=== PATIENT | male | born 1995 | race Caucasian/White ===

== ENCOUNTER 2017-03-24 17:02 | Emergency (ER) | payer BC ==
[~2017-03-24] VITALS: Ht 180.3 cm; Wt 61.2 kg
[~2017-03-24 17:02] MED LIST: HYDR-4309 PO
[2017-03-24 17:10] VITALS: BP 110/80
[2017-03-24] MEDS ORDERED: TERB250T74 PO (17:11)
--- NOTE | 2017-03-24 18:20 | ER Report ---
History and Physical Time Seen By MD: 17:55 Hx. of Stated Complaint: PT HAS HAD SORE THROAT FOR ABOUT ONE WEEK. STREP CULTURE NEGATIVE LAST WED. ALL SYMPTOMS HAVE RESOLVED EXCEPT THAT RIGHT TONSIL STILL SWOLLEN. HPI/ROS CHIEF COMPLAINT: Sore throat HISTORY OF PRESENT ILLNESS: This is a 22-year-old male who presents to the emergency department for a sore throat. Patient states that about 6 days ago he developed a sore throat, did go to [facility] for evaluation where they did a strep test which was negative. Patient states that since then his throat is been progressively getting worse his voice is changing, feels like shards of glass, he feels like he's been having some increased difficulties swallowing but doesn't feel his airway is compromised at this time. Patient states that the right side of his neck is more uncomfortable than the left. Patient states he's had aches, chills and sure about fevers patient has had episodes of nausea but no vomiting. No diarrhea or dysuria. No chest pain or shortness of breath. REVIEW OF SYSTEMS: Constitutional: As above. Eyes: No discharge. ENT: As above. Cardiovascular: No chest pain, no palpitations. Respiratory: No cough, no shortness of breath. Gastrointestinal: No abdominal pain, no vomiting. Genitourinary: No hematuria. Musculoskeletal: No back pain. Skin: No rashes. Neurological: No headache. Allergies: Coded Allergies: No Known Drug Allergies (Unverified , 03/24/17) Home Meds Active Scripts Benzonatate 100 Mg Cap (TESSALON PERLE 100 MG CAP) 100 Mg Capsule, 100 MG PO TID Y for COUGH, #15 CAP Prov:CAROLINA RUSSO VISITOR SERVICES INFORMATION ASSISTANT-BC 03/24/17 Reported Medications Terbinafine Hcl (TERBINAFINE HCL) 250 Mg Tablet, PO DAILY 03/24/17 Discontinued Scripts Hydrocodone Bit/Acetaminophen (NORCO 5-325 TABLET) 1 Each Tablet, 1 EACH PO 2- 3XD for 7 Days, #14 TAB Prov:LINDSAY BENSON MD 10/03/16 Past Medical/Surgical History The patient has no significant past medical or surgical history. Reviewed Nurses Notes: Yes Constitutional Vital Sign - Last 24 Hours 03/24/17 03/24/17 17:10 17:10 Temp 99.4 99.4 Pulse 77 77 Resp 14 14 B/P (MAP) 110/80 110/80 Pulse Ox 94 94 O2 Delivery Room Air Room Air Physical Exam General Appearance: The patient is alert, has no immediate need for airway protection and no signs of toxicity, appears uncomfortable. Eyes: Pupils equal and round no pallor or injection. ENT, Mouth: Mucous membranes are moist. 3+ tonsillar hypertrophy with exudative discharge. Erythema to the posterior oropharynx. Respiratory: There are no retractions, lungs are clear to auscultation. Cardiovascular: Regular rate and rhythm, no murmurs, clicks or rubs. Gastrointestinal: Abdomen is soft and non tender, no masses, bowel sounds normal. Neurological: Alert and oriented 4. Moving all extremities. Following all commands. No focal neuro deficits. Skin: Warm and dry, no rashes. Musculoskeletal: Neck is painful, significant anterior cervical chain lymphadenopathy more on the right than the left. Extremities are nontender, nonswollen and have full range of motion. DIFFERENTIAL DIAGNOSIS: After history and physical exam differential diagnosis was considered for strep throat, mono, influenza, peritonsillar abscess and viral syndrome. Medical Decision Making Data Points Laboratory Hematology Test 03/24/17 17:12 03/24/17 18:20 Group A Streptococcus Screen Negative (NEGATIVE) Monoscreen Positive (NEGATIVE) Influenza Virus Type A (PCR) Negative (NEGATIVE) Influenza Virus Type B (PCR) Negative (NEGATIVE) Chemistry Test 03/24/17 17:12 2 18:20 Group A Streptococcus Screen Negative (NEGATIVE) Monoscreen Positive (NEGATIVE) Influenza Virus Type A (PCR) Negative (NEGATIVE) Influenza Virus Type B (PCR) Negative (NEGATIVE) EKG/Imaging Imaging Location: [facility] Patient: Dami Pratt : 1995 Visit/Account:[id number] Date of Sevice: 03/24/2017 EXAMINATION: CT neck with IV contrast HISTORY: Sore throat. Evaluate for abscess. TECHNIQUE: Axial CT images of the neck were obtained with IV contrast, with coronal and sagittal 2D reconstructed images. One of the following dose optimization techniques was utilized in the performance of this exam: Automated exposure control; adjustment of the mA and/ or kV according to the patient's size; or use of an iterative reconstruction technique. Specific details can be referenced in the facility's radiology CT exam operational policy. Contrast: 75 mL of IV Isovue-370. COMPARISON: None. FINDINGS: There is moderate symmetric enlargement of the palatine tonsils bilaterally. No discrete tonsillar or peritonsillar abscess. The airway is otherwise widely patent. There are enlarged level II cervical lymph nodes bilaterally. Largest discrete nodes measure 2.6 x 1.9 cm on the right and 1.8 x 1.5 cm on the left. The parotid and submandibular glands are unremarkable. Normal CT appearance of the thyroid. Vasculature of the neck is patent. Visualized osseous structures are intact. The visualized paranasal sinuses and mastoid air cells are unopacified. Normal alignment along the cervical spine. The lung apices are clear. IMPRESSION: 1. Moderate enlargement of the palatine tonsils bilaterally, without evidence of discrete tonsillar or peritonsillar abscess. 2. Enlarged level II cervical lymph nodes bilaterally are likely reactive. 3. No other acute findings in the neck. Findings were discussed with CAROLINA RUSSO at 03/24/2017 7:18 PM. Report Dictated By: Harley Sharpe MD at 03/24/2017 7:12 PM Report E-Signed By: Harley Sharpe MD at 03/24/2017 7:22 PM WSN:[id number] ED Course/Re-evaluation Clinical Indication for ER IV: IV Access ED Course Patient was admitted to room. A history of physical were obtained. Differential diagnoses were considered. An IV was started. Given 8 mg by mouth Decadron. Patient had a negative rapid strep screen, negative influenza screen positive for mononucleosis. Patient did have a contrast CT of the neck looking for an abscess which was negative. There was a lot of lymphadenopathy noted on the CT. I did discuss these results with patient and instructed him to follow up with [facility] in 1 week. I also instructed the patient to remain free of any contact type sports for at least 2 weeks if not longer. Patient was instructed to take ibuprofen and Tylenol as needed for his pain and discomfort. Patient was also instructed to drink plenty of fluids. Patient was encouraged to return to the emergency department for any other concerns or worsening symptoms. Patient and other questions or concerns and was discharged home. Decision to Disposition Date: Mar 24, 2017 Decision to Disposition Time: 19:58 Depart Departure Latest Vital Signs Vital Signs Date Time Temp Pulse Resp B/P (MAP) Pulse Ox O2 Delivery O2 Flow Rate FiO2 03/24/17 17:10 99.4 77 14 110/80 94 Room Air Impression: Primary Impression: Mononucleosis Condition: Improved Disposition: HOME OR SELF-CARE New Scripts Benzonatate 100 Mg Cap (TESSALON PERLE 100 MG CAP) 100 Mg Capsule 100 MG PO TID Y for COUGH, #15 CAP Prov: CAROLINA RUSSO 03/24/17 Patient Instructions: Mononucleosis (ED) Additional Instructions: Drink plenty of fluids. Get plenty of rest. Take ibuprofen or tylenol as needed for pain and discomfort. [facility] with [facility] in one week for reevaluation. No contact sports for at least two weeks. Take the cough medication as indicated. Try one teaspoon of raw honey 5-6 times a day for sore throat. May return to the ED for worsening symptoms or any other concerns. CAROLINA RUSSO VISITOR SERVICES INFORMATION ASSISTANT-BC Mar 24, 2017 18:20
[2017-03-24] MEDS ORDERED: DEXAMETHASONE SOD PHOS 10MG/ML PO ONE (18:25)
[2017-03-24] MEDS ORDERED: IOPAMIDOL 76% 75 ML INFUS BTL 75 ML ONE (18:32)
[2017-03-24] MEDS ORDERED: NS 0.9% 20 ML SDV 20 ML ONE (18:32)
--- NOTE | 2017-03-24 19:27 | RADIOLOGY IMAGING REPORT ---
FACILITY: PATIENT NAME: Dami Pratt : 1995 MR: [id number] V: [id number] EXAM DATE: ORDERING PHYSICIAN: CAROLINA RUSSO TECHNOLOGIST: Location: [facility] [place] Patient: Dami Pratt : 1995 Visit/Account:[id number] Date of Sevice: 03/24/2017 EXAMINATION: CT neck with IV contrast HISTORY: Sore throat. Evaluate for abscess. TECHNIQUE: Axial CT images of the neck were obtained with IV contrast, with coronal and sagittal 2D reconstructed images. One of the following dose optimization techniques was utilized in the performance of this exam: Autom ated exposure control; adjustment of the mA and/or kV according to the patient's size; or use of an i terative reconstruction technique. Specific details can be referenced in the facility's radiology C T exam operational policy. Contrast: 75 mL of IV Isovue-370. COMPARISON: None. FINDINGS: There is moderate symmetric enlargement of the palatine tonsils bilaterally. No discrete tonsillar or peritonsillar abscess. The airway is otherwise widely patent. There are enlarged level II cervical lymph nodes bilaterally. Largest discrete nodes measure 2.6 x 1. 9 cm on the right and 1.8 x 1.5 cm on the left. The parotid and submandibular glands are unremarkable. Normal CT appearance of the thyroid. Vasculatu re of the neck is patent. Visualized osseous structures are intact. The visualized paranasal sinuses and mastoid air cells are unopacified. Normal alignment along the cervical spine. The lung apices are clear. IMPRESSION: 1. Moderate enlargement of the palatine tonsils bilaterally, without evidence of discrete tonsillar o r peritonsillar abscess. 2. Enlarged level II cervical lymph nodes bilaterally are likely reactive. 3. No other acute findings in the neck. Findings were discussed with CAROLINA RUSSO at 03/24/2017 7:18 PM. Report Dictated By: Harley Sharpe MD at 03/24/2017 7:12 PM Report E-Signed By: Harley Sharpe MD at 03/24/2017 7:22 PM WSN:[id number]
[2017-03-24] MEDS ORDERED: BENZ100C4 PO (20:03)
== END 2017-03-24 20:31 | disposition home or self-care (01) ==
LOC: ER 18:07
DX: B27.90 Infectious mononucleosis, unspecified without complication (principal)
CPT/HCPCS: 70491; 86308; 87081; 87502; 87880; 99283; J1100; J7050; Q9967